=== PATIENT | female | born 1950 | race Caucasian/White ===

== ENCOUNTER → 2018-09-27 | Outpatient (CLI) | payer MEDICARE, OTHER ==
[~2018-09-27] MED LIST: CATHETER FLUSH 10 ML SYR IV PRN; IOHEXOL 350 MG/ML 150 ML (OMNIPAQUE 350) VIAL IV ONE; NS 100 ML (IVPB) BAG IV ONE
--- NOTE | 2018-09-27 16:53 | Diagnostic Imaging Report ---
PROCEDURE: CT angiography of the chest with contrast. TECHNIQUE: Multiple contiguous axial images were obtained through the chest after uneventful bolus administration of intravenous contrast. 2D reconstructed CTA MIP acquisitions were also performed. INDICATION: Elevated D-dimer. Shortness of air. COMPARISON: None. FINDINGS: There is no evidence of acute pulmonary embolus to the first subsegmental division of the pulmonary arteries. Thoracic aorta is normal in course and caliber. Heart size is within normal limits. There is no large pericardial effusion. Few benign calcified right hilar lymph nodes are noted. No pathologically enlarged or morphologically abnormal adenopathy is seen within the mediastinum, sandhya, nor axilla. Evaluation of the lung windows demonstrates no focal consolidation, large effusion, nor pneumothorax. No suspicious pulmonary nodules or masses are identified. Benign-appearing calcified granuloma is noted within the right lower lobe. Osseous structures show no acute abnormalities. No lytic or blastic bony lesions are seen. Included portions of the upper abdomen are unremarkable. Please note, dedicated CT of the abdomen was also performed and separately dictated. IMPRESSION: 1. No CT evidence of acute pulmonary embolus. 2. No other acute cardiopulmonary process. Dictated by: Dictated on workstation # [id number]
--- NOTE | 2018-09-27 17:12 | Diagnostic Imaging Report ---
PROCEDURE: CT abdomen and pelvis without contrast. TECHNIQUE: Multiple contiguous axial images were obtained through the abdomen and pelvis without the use of intravenous contrast. DATE: September 27, 2018. COMPARISON: None. INDICATION: 67-year-old female, left lower quadrant abdominal pain. FINDINGS: There are limitations for evaluation of the abdominal organs, neoplastic processes, abscess, and limited evaluation of the vasculature relating to the lack of intravenous contrast. Please see separately dictated CT chest report for intrathoracic findings. The liver is normal in size and contour. There is a 6 mm low-attenuation lesion in the left lobe of the liver on axial image 15 which is too small to characterize. The gallbladder is surgically absent. There is no intrahepatic or extrahepatic bile duct dilation. The main pancreatic duct is not grossly dilated. Noncontrast evaluation of the pancreatic parenchyma is unremarkable. Several small splenic calcifications are compatible with sequela of prior granulomatous disease. The spleen is not enlarged. The adrenal glands are unremarkable. There is a low-attenuation right renal mass on axial image 35 measuring up to 3.6 cm in diameter with internal attenuation of 2 Hounsfield units consistent with a benign right renal cyst. The urinary collecting systems are not abnormally dilated. 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 There is no identified renal or ureteral stone. The urinary bladder is underdistended and not well evaluated. The uterus is not seen and may be surgically absent. The intestinal tract is not distended. The appendix is well seen on axial image 49 and adjacent sequential images. There is no evidence of acute appendicitis. There is no free intraperitoneal air. There is no drainable fluid collection. There is no free pelvic fluid. There is no identified abnormally enlarged lymph node in the abdomen or pelvis which meets CT size criteria for adenopathy. There are atherosclerotic calcifications. There is no identified acute bony abnormality. There are degenerative changes of the spine. There is a benign L1 vertebral body hemangioma. There is a superior endplate concavity of T12 with Schmorl's node. There is no visible fracture line. IMPRESSION: CT abdomen and pelvis: 1. No identified acute abnormality in the abdomen or pelvis. 2. Incidental findings as above. Dictated by: Dictated on workstation # [id number]
== END ==
LOC: RAD 15:30
PROVIDERS: ATTEND Obstetrics & Gynecology
DX: K57.90 Diverticulosis of intestine, part unspecified, without perforation or abscess without bleeding (principal); K76.9 Liver disease, unspecified; D73.89 Other diseases of spleen; N28.89 Other specified disorders of kidney and ureter; I70.90 Unspecified atherosclerosis; M47.899 Other spondylosis, site unspecified; D18.09 Hemangioma of other sites; M51.46 Schmorl's nodes, lumbar region; R06.02 Shortness of breath; Z90.49 Acquired absence of other specified parts of digestive tract
CPT/HCPCS: 71275; 74176

== ENCOUNTER → 2018-11-05 | Outpatient (CLI) | payer MEDICARE, OTHER | LOC: CARD 11:31 | PROVIDERS: ATTEND Nurse Practitioner Family | DX: M35.00 Sjogren syndrome, unspecified (principal) | CPT/HCPCS: 93306 ==

== ENCOUNTER 2018-11-08 19:42 | Outpatient (CLI) | payer MEDICARE, OTHER | END 2018-11-09 06:43 | disposition home or self-care (01) | LOC: SLEEP 19:42 | PROVIDERS: ATTEND Nurse Practitioner Family | DX: G47.33 Obstructive sleep apnea (adult) (pediatric) (principal); G47.10 Hypersomnia, unspecified; J30.2 Other seasonal allergic rhinitis; J45.909 Unspecified asthma, uncomplicated; R05 Cough; R06.00 Dyspnea, unspecified; Z87.891 Personal history of nicotine dependence | CPT/HCPCS: 95810 ==

== ENCOUNTER → 2018-11-28 | Outpatient (CLI) | payer MEDICARE, OTHER ==
[~2018-11-28] MED LIST changes: -CATHETER FLUSH 10 ML SYR IV PRN; -IOHEXOL 350 MG/ML 150 ML (OMNIPAQUE 350) VIAL IV ONE; -NS 100 ML (IVPB) BAG IV ONE; +RT-ALBUTEROL SULF 2.5 MG/3 ML PRE-MIX VIAL INH ONE; +RT-ALBUTEROL SULF 2.5 MG/3 ML PRE-MIX VIAL ONE
== END ==
LOC: CARD 12:31
PROVIDERS: ATTEND Nurse Practitioner Family
DX: J45.909 Unspecified asthma, uncomplicated (principal); R05 Cough; R06.00 Dyspnea, unspecified; G47.10 Hypersomnia, unspecified; Z87.891 Personal history of nicotine dependence
CPT/HCPCS: 94060; 94726; 94729

== ENCOUNTER → 2019-02-26 | Outpatient (CLI) | payer MEDICARE, OTHER ==
[~2019-02-26] MED LIST changes: +HOLD METFORMIN - RECEIVED CONTRAST 20 ML VIAL IV SCH; +IOHEXOL 350 MG/ML 100 ML (OMNIPAQUE 350) VIAL IV ONE; +NS 100 ML (IVPB) BAG IV ONE; -RT-ALBUTEROL SULF 2.5 MG/3 ML PRE-MIX VIAL INH ONE; -RT-ALBUTEROL SULF 2.5 MG/3 ML PRE-MIX VIAL ONE
[2019-02-26 09:23] LABS: BUN/CREATININE RATIO 28; CREATININE SERUM 0.74 MG/DL (0.60-1.30); GFR ESTIMATED > 60
--- NOTE | 2019-02-26 10:58 | Diagnostic Imaging Report ---
PROCEDURE: CT abdomen and pelvis with contrast. TECHNIQUE: Multiple contiguous axial images were obtained through the abdomen and pelvis after administration of intravenous contrast. Auto Exposure Controls were utilized during the CT exam to meet ALARA standards for radiation dose reduction. INDICATION: Renal cysts. Liver cyst. COMPARISON: CT abdomen and pelvis without contrast 09/27/2018. FINDINGS: Simple appearing subcentimeter cyst in the left hepatic lobe is stable allowing for differences in technique. A simple cyst in the right kidney measures up to 3.8 cm and is also stable. Cholecystectomy. Calcified granulomas in the spleen. The pancreas, adrenals, left kidney, collecting systems, appendix and bladder are negative. Hysterectomy. Colonic diverticulosis without evidence of active diverticulitis. No free intraperitoneal air. No lymphadenopathy. No evidence of bowel obstruction. No acute osseous findings. IMPRESSION: 1. Stable simple appearing cysts in the right kidney and liver. 2. No acute CT findings in the abdomen or pelvis. Dictated by: Dictated on workstation # [id number]
== END ==
LOC: RAD FS 08:47
PROVIDERS: ATTEND Nurse Practitioner Family
DX: Z13.9 Encounter for screening, unspecified (principal); N28.1 Cyst of kidney, acquired; K76.89 Other specified diseases of liver; Z90.49 Acquired absence of other specified parts of digestive tract
CPT/HCPCS: 36415; 74177; 82565; 84520

== ENCOUNTER 2019-04-18 19:56 | Outpatient (CLI) | payer MEDICARE, OTHER | END 2019-04-19 06:30 | disposition home or self-care (01) | LOC: SLEEP 19:56 | PROVIDERS: ATTEND Nurse Practitioner Family | DX: G47.33 Obstructive sleep apnea (adult) (pediatric) (principal); G47.36 Sleep related hypoventilation in conditions classified elsewhere; J30.2 Other seasonal allergic rhinitis; G47.10 Hypersomnia, unspecified; J45.909 Unspecified asthma, uncomplicated; Z87.891 Personal history of nicotine dependence | CPT/HCPCS: 95811 ==